=== PATIENT | male | born 1960 | race Caucasian/White ===

== ENCOUNTER 2019-02-01 21:31 | Emergency (ER) | payer OTHER ==
[~2019-02-01] VITALS: Ht 175.3 cm; Wt 81.7 kg
[~2019-02-01 21:31] MED LIST: ACID CONTROL20 MG PO; DIPHENHYDRAMINE25 M3 PO; DOXYCYCLINE HYC50 M1 PO; FENOGLIDE40 MG PO; HYDROCODON-ACE1 EAC7 PO; LOFIBRA200 MG PO; LORTAB 5-500 T1 EAC1 PO; METOCLOPRAMIDE10 MG PO; NORCO 5-325 TA1 EACH PO; PERCOCET 5-3251 EACH PO; PREVACID30 MG PO; TRICOR145 MG PO; ZOFRAN ODT4 MG PO; ZOFRAN ODT8 MG PO; ZOFRAN4 MG PO; [UNRECOGNIZED DRUG - OTHER] PO
[2019-02-01] MEDS ORDERED: BENTYL 20 MG TA20 M1 (21:45)
[2019-02-01] MEDS ORDERED: GENTAK5 ML TOP (23:57)
[2019-02-02 00:20] VITALS: BP 130/83
== END 2019-02-02 00:20 | disposition home or self-care (01) ==
LOC: M.ERS 21:31
DX: S05.01XA Injury of conjunctiva and corneal abrasion without foreign body, right eye, initial encounter (principal); Z86.19 Personal history of other infectious and parasitic diseases; X58.XXXA Exposure to other specified factors, initial encounter; Y93.9 Activity, unspecified; Y92.89 Other specified places as the place of occurrence of the external cause; Y99.8 Other external cause status